=== PATIENT | male | born 1955 | race Caucasian/White ===

== ENCOUNTER 2017-09-14 18:19 | Emergency (ER) | payer SELFPAY ==
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
[2017-09-14 18:39] VITALS: BMI 25.0
[2017-09-14 18:58] LABS: EOS % 1.9 % (0-4.5); HEMATOCRIT 49.9 % (35.4-49); HEMOGLOBIN 16.8 GM/dl (11.7-16.9); LYMPH % 13.2 % (8-40); MCH 32.2 pg (25.7-33.7); MCHC 33.8 g/dl (32.0-35.9); MEAN CELL VOLUME 95.3 fl (80-96); MEAN PLT VOLUME 8.1 fl (7.5-11.1); MONO % 14.5 % (3.8-10.2); NEUT % 67.4 % (42.8-82.8); PLATELET COUNT 263 K/MM3 (134-434); RBC 5.23 M/mm3 (4.00-5.60); RDW 12.2 % (11.9-15.9); WHITE BLOOD COUNT 9.6 K/mm3 (4.0-10.8)
[2017-09-14 19:05] VITALS: BP 117/74; PULSE 79; TEMP 99.8
[2017-09-14] MEDS ORDERED: AMOX TR/POT CLAV 875MG/125MG TABLETS (FP) ONE (19:06)
[2017-09-14] MEDS ORDERED: AMOX TR/POT CLAV 875MG/125MG TABLETS (FP) PO ONE (19:06)
== END 2017-09-14 19:13 | disposition home or self-care (01) ==
LOC: FER 18:19
CPT/HCPCS: 36415; 85025; 99282-25

== ENCOUNTER 2017-09-18 21:22 | Emergency (ER) | payer SELFPAY ==
[2017-09-18 21:28] VITALS: BP 119/71; PULSE 74; TEMP 99.2; BMI 25.0
--- NOTE | 2017-09-18 22:15 | PDOC ---
History of Present Illness - General Chief Complaint: Cold Symptoms Stated Complaint: PRODUCTIVE COUGH Time Seen by Provider: 09/18/17 21:31 - History of Present Illness Initial Comments: This 61-year-old man seen here 4 days ago and diagnosed with acute sinusitis, taking Augmentin 875/125 twice a day since then presents with a few day history of cough productive of greenish sputum and subjective fever. No other new symptoms. Patient denies wheezing or shortness of breath. Past History - Past Medical History Allergies/Adverse Reactions: Allergies Allergy/AdvReac Type Severity Reaction Status Date / Time amoxicillin AdvReac Intermediate Nausea Verified 09/14/17 18:22 Home Medications: Ambulatory Orders Amoxicillin/Potassium Clav [Augmentin 875-125 Tablet] 1 each PO BID #14 tablet 09/14/17 Amoxicillin/Potassium Clav [Augmentin 875-125 Tablet] 1 each PO BID #6 tablet COPD: No - Suicide/Smoking/Psychosocial Hx Smoking Status: No Smoking History: Unknown if ever smoked Have you smoked in the past 12 months: No Number of Cigarettes Smoked Daily: 0 Information on smoking cessation initiated: No Hx Alcohol Use: No Drug/Substance Use Hx: No Substance Use Type: None *Physical Exam - Vital Signs Last Vital Signs Temp Pulse Resp BP Pulse Ox 99.2 F 74 14 119/71 96 09/18/17 21:24 09/18/17 21:24 09/18/17 21:24 09/18/17 21:24 09/18/17 21:24 Medical Decision Making - Medical Decision Making Chest x-ray reveals no evidence of infiltrate/effusion or other acute pathology Clinical presentation most consistent with acute bronchitis. The patient will be maintained on his Augmentin and additional 3 day course added. *DC/Admit/Observation/Transfer Diagnosis at time of Disposition: Acute bronchitis Qualifiers: Bronchitis organism: unspecified organism Qualified Code(s): J20.9 - Acute bronchitis, unspecified - Discharge Dispostion Disposition: HOME Condition at time of disposition: Stable - Prescriptions Prescriptions: Amoxicillin/Potassium Clav [Augmentin 875-125 Tablet] 1 each PO BID #6 tablet - Referrals - Patient Instructions Printed Discharge Instructions: Acute Bronchitis Additional Instructions: Continue Augmentin 875/125 twice a day for full 10 days Continue rest/plenty of fluids Ibuprofen/naproxen/acetaminophen as needed Return if you have wheezing/shortness of breath/severe cough - Post Discharge Activity
== END 2017-09-18 22:54 | disposition home or self-care (01) ==
LOC: FER 21:22
DX: J20.9 Acute bronchitis, unspecified (principal)
CPT/HCPCS: 71046-TC; 99282-25

== ENCOUNTER 2017-12-02 16:47 | Emergency (ER) | payer SELFPAY ==
[2017-12-02 17:00] VITALS: BP 125/77; PULSE 91; TEMP 97.7; BMI 25.0
[2017-12-02] MEDS ORDERED: DIPHTH,PERTUSS(ACELL),TET 0.5 ML DISP.SYRIN IM ONE (18:27)
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
== END 2017-12-02 19:08 | disposition home or self-care (01) ==
LOC: FER 16:47
PROC: 0HQDXZZ Repair Right Lower Arm Skin, External Approach (ICD-10-PCS; principal; 2017-12-02)
PROC: 3E0234Z Introduction of Serum, Toxoid and Vaccine into Muscle, Percutaneous Approach (ICD-10-PCS; 2017-12-02)
DX: S51.011A Laceration without foreign body of right elbow, initial encounter (principal); X99.1XXA Assault by knife, initial encounter; Y93.89 Activity, other specified; Y92.9 Unspecified place or not applicable
CPT/HCPCS: 90715; 99283-25

== ENCOUNTER 2017-12-17 17:51 | Emergency (ER) | payer SELFPAY ==
--- NOTE | 2017-12-17 17:55 | PDOC ---
History of Present Illness <Oracio Saldana - Last Filed: 12/17/17 18:17> - General History Source: Patient Exam Limitations: No Limitations - History of Present Illness Initial Comments: 12/17/17 18:27 The patient is a 61 year old male with no significant past medical history who presents to the Emergency department to remove right elbow stitches. The patient reports that he had his stitches put in place 2 weeks ago prior to today's visit. The patient denies any other complaints. For initial Assessment and plan for patient it is noted that the patient has some redness around the suture area. The patient will take antibiotics in case of potential infection around suture area. <Devaughn Schwartz - Last Filed: 12/17/17 18:52> - General Chief Complaint: Suture/Staple Removal(Here) Stated Complaint: SUTURE REMOVAL Time Seen by Provider: 12/17/17 17:55 Past History - Past Medical History COPD: No - Suicide/Smoking/Psychosocial Hx Smoking Status: No Smoking History: Unknown if ever smoked Have you smoked in the past 12 months: No Number of Cigarettes Smoked Daily: 0 Hx Alcohol Use: No Drug/Substance Use Hx: No Substance Use Type: None <Oracio Saldana - Last Filed: 12/17/17 18:17> <Devaughn Schwartz - Last Filed: 12/17/17 18:52> - Past Medical History Allergies/Adverse Reactions: Allergies Allergy/AdvReac Type Severity Reaction Status Date / Time azithromycin AdvReac Unknown STOMACH Verified 12/17/17 18:18 ACHE Home Medications: Ambulatory Orders Amoxicillin/Potassium Clav [Augmentin 875-125 Tablet] 1 each PO BID #10 tablet 12/17/17 Review of Systems - Review of Systems Able to Perform ROS?: Yes Comments:: 12/17/17 18:31 A complete review of 10 out of 10 review of systems is taken and is negative apart from what is previously mentioned below and in the HPI. <Devaughn Schwartz - Last Filed: 12/17/17 18:52> *Physical Exam - Vital Signs Last Vital Signs Temp Pulse Resp BP Pulse Ox 98.3 F 77 20 113/73 98 12/17/17 17:52 12/17/17 17:52 12/17/17 17:52 12/17/17 17:52 12/17/17 17:52 - Physical Exam Comments: 12/17/17 18:32 Vitals: Triage vital signs reviewed General Appearance: No acute distress, well nourished, well developed Head: Atraumatic Neck: Supple; No nuchal rigidity Chest Wall: Nontender Genitourinary: Rectal: Exam deferred Extremities:(+) [address] on the right elbow with redness around site. Full range of motion to all extremities, no cyanosis, clubbing, or edema Skin: Warm and dry, no rashes or lesions, no rash, no petechiae Psych: Normal mood, normal affect <Devaughn Schwartz - Last Filed: 12/17/17 18:52> ED Treatment Course - Medications Given in the ED: ED Medications Discontinued Medications Generic Name Dose Route Start Last Admin Trade Name Freq PRN Reason Stop Dose Admin Amoxicillin/Clavulanate Potassium 1 tab 12/17/17 18:16 12/17/17 18:21 Augmentin - 875mg Tablet PO 12/17/17 18:17 1 tab ONCE ONE Administration <Devaughn Schwartz - Last Filed: 12/17/17 18:52> Medical Decision Making - Medical Decision Making 12/17/17 18:17Patient with sutures placed 15 days ago presents for suture removal 6 sutures removed with no complications some slight dehiscence wound will heal by secondary intention. Redness surrounding the area likely from sutures being in place for to long but indication of infection we'll place patient on seven-day course of Augmentin Final is, the need for follow-up and strict return instructions discussed with patient. <Oracio Saldana - Last Filed: 12/17/17 18:17> *DC/Admit/Observation/Transfer - Discharge Dispostion Admit: No <Oracio Saldana - Last Filed: 12/17/17 18:17> - Attestations Scribe Attestion: 12/17/17 18:33 Documentation prepared by Devaughn Schwartz, acting as director of medical review for Oracio Saldana MD. <Devaughn Schwartz - Last Filed: 12/17/17 18:52> Diagnosis at time of Disposition: Visit for suture removal - Discharge Dispostion Disposition: HOME Condition at time of disposition: Improved - Prescriptions Prescriptions: Amoxicillin/Potassium Clav [Augmentin 875-125 Tablet] 1 each PO BID #10 tablet - Patient Instructions Printed Discharge Instructions: DI for Suture Removal Additional Instructions: Keep covered with Steri-Strips. Take Augmentin as prescribed. Check elbow each day return to ED for any fever spreading redness worsening redness pain streaking red lines or for any concerns.
[2017-12-17 18:14] VITALS: BP 113/73; PULSE 77; TEMP 98.3; BMI 23.1
[2017-12-17] MEDS ORDERED: AMOX TR/POT CLAV 875MG/125MG TABLETS (FP) PO ONE (18:16)
[2017-12-17] MEDS ORDERED: AMOX TR/POT CLAV 875MG/125MG TABLETS (FP) ONE (18:19)
== END 2017-12-17 18:25 | disposition home or self-care (01) ==
LOC: FER 17:51
DX: Z48.02 Encounter for removal of sutures (principal)
CPT/HCPCS: 99281-25

== ENCOUNTER 2022-06-23 14:30 | Emergency (ER) | payer OTHER ==
[2022-06-23 14:51] VITALS: BP 114/95; PULSE 85; RESP 18; TEMP 99.3; BMI 26.9
[2022-06-23] MEDS ORDERED: ACETAMINOPHEN 325 MG TABLET (FP) PO ONE (15:17)
[2022-06-23] MEDS ORDERED: ACETAMINOPHEN 500 MG TABLET (FP) PO ONE (15:18)
[2022-06-23] MEDS ORDERED: ACETAMINOPHEN 500 MG TABLET (FP) ONE (15:19)
[2022-06-23 15:58] LABS: HEMATOCRIT 46.3 % (35.4-49); HEMOGLOBIN 16.2 G/dL (11.7-16.9); MCH 32.8 pg (25.7-33.7); MCHC 35.1 g/dl (32.0-35.9); MEAN CELL VOLUME 93.5 fl (80-96); MEAN PLT VOLUME 7.8 fl (7.5-11.1); PLATELET COUNT 231.3 10^3/uL (134-434); RBC 4.95 10^6/uL (4.00-5.60); RDW 13.3 % (11.9-15.9); WHITE BLOOD COUNT 9.5 10^3/uL (4.0-10.8)
[2022-06-23 16:01] LABS: ALBUMIN 3.8 g/dl (3.4-5.0); ALK PHOS 56 U/L (45-117); ANION GAP 5 MMOL/L (8-16); CALCIUM 8.8 mg/dl (8.5-10); CHLORIDE 103 mmol/L (98-107); CO2 25 mmol/L (21-32); GLUCOSE,RANDOM 102 mg/dl (74-106); SGOT/AST 18 U/L (15-37); SGPT/ALT 17 U/L (13-61); SODIUM 133 mmol/L (136-145); TOT PROT 6.7 g/dl (6.4-8.2)
[2022-06-23 16:18] LABS: PLATELET ESTIMATE ADEQUATE
== END 2022-06-23 16:49 | disposition home or self-care (01) ==
LOC: FER 14:30
DX: B34.9 Viral infection, unspecified (principal)
CPT/HCPCS: 0241U-QW; 36415; 71045-TC-FY; 80053; 82550; 84484; 85027; 93005; 99285-25